=== PATIENT | female | born 1980 | race Caucasian/White ===

== ENCOUNTER 2018-02-20 00:34 | Outpatient (CLI) | payer OTHER | END 2018-02-20 00:35 | disposition critical access hospital (66) | LOC: EMS 00:34 | PROVIDERS: ATTEND Surgery | DX: R42 Dizziness and giddiness (principal); R61 Generalized hyperhidrosis; R51 Headache | CPT/HCPCS: A0425; A0429 ==

== ENCOUNTER 2018-02-20 01:07 | Emergency (ER) | payer OTHER ==
[2018-02-20] MEDS ORDERED: SODIUM CHLORIDE 0.9% 1,000 ML IV ONE (01:38)
[2018-02-20 01:44] LABS: BASOPHILS # (AUTO) 0.1 10^3/uL (0.0-0.1); BASOPHILS % (AUTO) 0.9 %; EOSINOPHILS # (AUTO) 0.2 10^3/uL (0.0-0.7); EOSINOPHILS % (AUTO) 2.6 %; HGB - HEMOGLOBIN 14.8 g/dL (12.0-16.0); LYMPHOCYTES # (AUTO) 1.7 10^3/uL (1.5-3.5); MEAN CORPUSCULAR HEMOGLOBIN 32.6 pg (27.0-31.0); MEAN CORPUSCULAR HGB CONC 35.6 g/dL (32.0-36.0); MEAN CORPUSCULAR VOLUME 91.5 fL (81.0-99.0); MEAN PLATELET VOLUME 7.1 fL (7.9-10.8); MONOCYTES # (AUTO) 0.6 10^3/uL (0.0-1.0); MONOCYTES % (AUTO) 6.6 %; NEUTROPHILS # (AUTO) 6.8 10^3/uL (1.5-6.6); NEUTROPHILS % (AUTO) 71.9 %; PLT - PLATELET COUNT 298 10^3/uL (130-450); RED BLOOD COUNT 4.53 10^6/uL (4.20-5.40); RED CELL DISTRIBUTION WIDTH 12.2 % (12.0-15.0); WHITE BLOOD COUNT 9.5 x10^3/uL (4.8-10.8)
[2018-02-20 01:46] LABS: BILIRUBIN,URINE NEGATIVE (NEGATIVE); GLUCOSE, URINE (UA) NEGATIVE (NEGATIVE); KETONES,URINE (UA) NEGATIVE (NEGATIVE); LEUKOCYTE ESTERASE, URINE NEGATIVE (NEGATIVE); NITRITE,URINE NEGATIVE (NEGATIVE); OCCULT BLOOD,URINE MODERATE (NEGATIVE); PROTEIN,URINE NEGATIVE (NEGATIVE); UROBILINOGEN,URINE 0.2 (NORMAL) E.U./dL (NORMAL)
[2018-02-20 01:54] LABS: CLARITY,URINE CLEAR (CLEAR)
[2018-02-20 01:55] LABS: HCG UR QUAL NEGATIVE; RBC,URINE 0-5 /HPF (0-5); SQUAMOUS EPITHELIAL CELL,UR FEW Squamous (<= Few)
[2018-02-20 01:56] LABS: ALBUMIN 4.1 g/dL (3.2-5.5); ALBUMIN/GLOBULIN RATIO 1.4 (1.0-2.2); BILIRUBIN,TOTAL 0.6 mg/dL (0.2-1.0); CALCIUM 9.1 mg/dL (8.5-10.3); CREATININE 0.7 mg/dL (0.4-1.0)
[2018-02-20 01:56] LABS: BACTERIA,URINE Few /HPF (None Seen); MUCUS,URINE Few Strands
[2018-02-20] MEDS ORDERED: ONDANSETRON 4 MG/2 ML VIAL IVP STA (03:38)
--- NOTE | 2018-02-20 03:41 | ED Physician Documentation ---
PD HPI NVD - Stated complaint Stated Complaint: N/V/DIZZY - Chief complaint Chief Complaint: Neuro - History obtained from History obtained from: Patient - History of Present Illness Timing - onset: Enter time (20:00), Last night ((few hours ago; night of 02/19/18)) Timing - details: Abrupt onset Associated symptoms: Vaginal bleeding. No: Fever, Abdominal pain Recently seen: Clinic (recently rx augmentin for ear infection) - Additonal information Additional information: c/o sudden onset vaginal bleeding 8 PM with mild suprapubic cramping and associated with lightheadedness/dizziness, generalized weakness, "felt like I was going to pass out" (per patient), nausea but no vomiting. She has some residual bleeding at time of HPI, but other symptoms have resolved. Review of Systems Constitutional: reports: Reviewed and negative Cardiac: reports: Reviewed and negative Respiratory: reports: Reviewed and negative GI: reports: Nausea. denies: Abdominal Pain (mild suprapubic cramping but no abdominal pain per se), Vomiting, Constipation, Diarrhea : reports: Vaginal bleeding. denies: Dysuria, Frequency Neurologic: reports: Generalized weakness (resolved), Headache. 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 HEENT: Other - Present Medications Home Medications: Ambulatory Orders Medication Instructions Recorded Confirmed Amox/Clav 875/125 [Augmentin 1 tab PO BID 02/20/18 02/20/18 875/125] Ondansetron Odt [Zofran] 4 mg TL Q6H PRN #10 tablet 02/20/18 - Allergies Allergies/Adverse Reactions: Allergies Allergy/AdvReac Type Severity Reaction Status Date / Time No Known Drug Allergies Allergy Verified 02/20/18 01:20 - Social History Does the pt smoke?: No Smoking Status: Never smoker Does the pt drink ETOH?: Yes ETOH Use: Wine Does the pt have substance abuse?: No - Immunizations Immunizations are current?: No Immunizations: TDAP >10years/unknown - POLST Patient has POLST: No PD ED PE NORMAL - Vitals Vital signs reviewed: Yes - General General: Alert and oriented X 3, No acute distress, Well developed/nourished - HEENT HEENT: Moist mucous membranes - Cardiac Cardiac: RRR, No murmur - Respiratory Respiratory: No respiratory distress, Clear bilaterally - Abdomen Abdomen: Soft, Non tender, Non distended - Back Back: No CVA TTP - Derm Derm: Normal color, Warm and dry - Neuro Neuro: Alert and oriented X 3, 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 IUD string from cervix noted, and using ringed forceps, IUD removed with gentle traction on IUD string. 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 No: Skin lesions, Vaginal Discharge Results - Vitals Vitals: Vital Signs - 24 hr 02/20/18 02/20/18 02/20/18 02:26 03:46 04:09 Temperature Heart Rate 57 L 64 68 Respiratory 16 18 16 Rate Blood Pressure 98/63 107/67 113/67 O2 Saturation 100 99 100 02/20/18 05:01 Temperature 36.4 C L Heart Rate 74 Respiratory 16 Rate Blood Pressure 120/69 O2 Saturation 100 Oxygen O2 Source Room air - Labs Labs: Laboratory Tests 02/20/18 02/20/18 02/20/18 01:25 01:25 01:30 WBC 9.5 RBC 4.53 Hgb 14.8 Hct 41.5 MCV 91.5 MCH 32.6 H MCHC 35.6 RDW 12.2 Plt Count 298 MPV 7.1 L Neut # (Auto) 6.8 H Lymph # (Auto) 1.7 Hart # (Auto) 0.6 Eos # (Auto) 0.2 Baso # (Auto) 0.1 Absolute Nucleated RBC 0.01 Nucleated RBC % 0.1 Sodium Potassium Chloride Carbon Dioxide Anion Gap BUN Creatinine Estimated GFR (MDRD) Glucose Calcium Total Bilirubin AST ALT Alkaline Phosphatase Total Protein Albumin Globulin Albumin/Globulin Ratio Lipase Urine Color YELLOW Urine Clarity CLEAR Urine pH 6.0 Ur Specific Swiss 1.015 1.015 Urine Protein NEGATIVE Urine Glucose (UA) NEGATIVE Urine Ketones NEGATIVE Urine Occult Blood MODERATE H Urine Nitrite NEGATIVE Urine Bilirubin NEGATIVE Urine Urobilinogen 0.2 (NORMAL) Ur Leukocyte Esterase NEGATIVE Urine RBC 0-5 Urine WBC 0-3 Ur Squamous Epith Cells FEW Squamous Urine Bacteria Few Urine Mucus Few Strands Ur Microscopic Review INDICATED Urine Culture Comments NOT INDICATED Urine HCG, Qual NEGATIVE 02/20/18 01:30 WBC RBC Hgb Hct MCV MCH MCHC RDW Plt Count MPV Neut # (Auto) Lymph # (Auto) Hart # (Auto) Eos # (Auto) Baso # (Auto) Absolute Nucleated RBC Nucleated RBC % Sodium 140 Potassium 4.0 Chloride 104 Carbon Dioxide 29 Anion Gap 7.0 BUN 18 Creatinine 0.7 Estimated GFR (MDRD) 95 Glucose 112 H Calcium 9.1 Total Bilirubin 0.6 AST 18 ALT 17 Alkaline Phosphatase 55 Total Protein 7.0 Albumin 4.1 Globulin 2.9 Albumin/Globulin Ratio 1.4 Lipase 32 Urine Color Urine Clarity Urine pH Ur Specific Swiss Urine Protein Urine Glucose (UA) Urine Ketones Urine Occult Blood Urine Nitrite Urine Bilirubin Urine Urobilinogen Ur Leukocyte Esterase Urine RBC Urine WBC Ur Squamous Epith Cells Urine Bacteria Urine Mucus Ur Microscopic Review Urine Culture Comments Urine HCG, Qual PD MEDICAL DECISION MAKING - ED course Complexity details: reviewed results, re-evaluated patient, considered differential, d/w patient ED course: Results reviewed. Patient reported improvement in nausea with zofran and headache improved with ibuprofen. She requests IUD removal and thus this was performed without difficulty or complication. - Sepsis Event Vital Signs: Vital Signs - 24 hr 02/20/18 02/20/18 02/20/18 02:26 03:46 04:09 Temperature Heart Rate 57 L 64 68 Respiratory 16 18 16 Rate Blood Pressure 98/63 107/67 113/67 O2 Saturation 100 99 100 02/20/18 05:01 Temperature 36.4 C L Heart Rate 74 Respiratory 16 Rate Blood Pressure 120/69 O2 Saturation 100 Oxygen O2 Source Room air Departure - Departure Disposition: 01 Home, Self Care Clinical Impression: Vaginal bleeding Condition: Good Instructions: ED Bleed Irregular Vaginal Prescriptions: Ondansetron Odt [Zofran] 4 mg TL Q6H PRN #10 tablet PRN Reason: Nausea / Vomiting Discharge Date/Time: 02/20/18 05:02
[2018-02-20] MEDS ORDERED: IBUPROFEN 600 MG TABLET PO STA (04:32)
[2018-02-20 05:02] VITALS: BP 120/69
== END 2018-02-20 05:02 | disposition home or self-care (01) ==
LOC: ED 01:07
DX: N93.9 Abnormal uterine and vaginal bleeding, unspecified (principal)
CPT/HCPCS: 36415; 80053; 81001; 81025; 83690; 85025; 96361; 96374; 99283; 99285; A9270; 81003; 87086